=== PATIENT | male | born 1945 | race Two or more races ===

== ENCOUNTER 2016-11-10 13:38 | Inpatient (IN) | payer MEDICARE, MEDICAID ==
[~2016-11-10 13:38] MED LIST: ARTIFICIAL TEAR15 M6 BOTH EYES; FLOXIN OTIC5 M1 OT; GLUCOPHAGE850 M1 PO; LINZESS290 MC1 PO; MULTI VITAMIN1 EACH PO; MYRBETRIQ25 MG PO; NEURONTIN300 M1 PO; POLYETHYLENE GL14 EA PO; PRILOSEC OTC20 M1 PO; PRINIVIL20 M1 PO; ZOCOR20 M1 PO; [UNRECOGNIZED DRUG - OTHER]
[2016-11-11 05:58] LABS: BASO % 0.1 % (0-2); EOS % 0.1 % (0-7); HCT-HEMATOCRIT 31.7 % (36.0-53.5); HGB-HEMOGLOBIN 10.1 gm/dl (13.5-17.0); IMMATURE GRANULOCYTES ABSOLUTE 0.03 tho/cmm (0-0.03); IMMATURE GRANULOCYTES PERCENT 0.2 % (0-0.3); LYMPH % 8.4 % (20-45); LYMPH ABSOLUTE COUNT 1.3 tho/cmm (0.8-4.5); MCH (MEAN CORPUSCULAR HGB) 30.1 pg (28.0-32.0); MCHC MEAN CORPUSCULAR HGB CONC 31.9 % (32.0-36.0); MCV (MEAN CELL VOLUME) 94.6 fl (82.0-96.0); MONO % 6.8 % (0-12); MONOCYTE ABSOLUTE COUNT 1.1 tho/cmm (0.0-1.2); NEUTROPHIL ABSOLUTE COUNT 13.3 tho/cmm (1.6-8.0); NEUTROPHIL-AUTOMATED 13.3 tho/cmm (1.6-8.0); NEUTROPHILS % 84.4 % (40-80); PLATELET COUNT 367 tho/cmm (150-450); RED BLOOD COUNT 3.35 mil/cmm (4.40-5.70); RED CELL DISTRIBUTION WIDTH 14.4 % (12.4-16.4); WHITE BLOOD COUNT 15.7 tho/cmm (4.0-10.0)
[2016-11-11] MEDS ORDERED: ASPIRIN325 M3 PO (14:57)
[2016-11-11] MEDS ORDERED: MOBIC7.5 M2 PO (14:58)
[2016-11-11] MEDS ORDERED: ROXICODONE5 M2 PO (14:59)
[2016-11-11] MEDS ORDERED: ULTRAM50 M1 PO (15:02)
[2016-11-11] MEDS ORDERED: TYLENOL325 M2 PO (15:03)
[2017-05-30] MEDS ORDERED: VITAMIN D31000 UNI3 PO (15:25)
[2017-05-30] MEDS ORDERED: ULTRAM50 M1 PO (19:02)
[2017-05-30] MEDS ORDERED: PEPCID20 M1 PO (19:02)
== END 2016-11-11 16:18 | disposition home health service (06) | DRG 470 ==
LOC: SHSB 13:38 → ORE 16:33 → 5EA 21:46
PROVIDERS: Physician Assistant; ADMIT Orthopaedic Surgery
PROC: 0SRC0J9 Replacement of Right Knee Joint with Synthetic Substitute, Cemented, Open Approach (ICD-10-PCS; principal; 2016-11-10)
DX: M17.11 Unilateral primary osteoarthritis, right knee (principal); I10 Essential (primary) hypertension; F17.200 Nicotine dependence, unspecified, uncomplicated; I25.10 Atherosclerotic heart disease of native coronary artery without angina pectoris; K21.9 Gastro-esophageal reflux disease without esophagitis
CPT/HCPCS: C1713; C1776; G8979-GP-CJ; G8980-GP-CJ; G8987-GO-CJ; G8988-GO-CI; G8989-GO-CJ; J0171; J0690; J1170; J1885; J2270; J2795; J3010

== ENCOUNTER 2016-12-19 18:15 | Emergency (ER) | payer MEDICARE, MEDICAID ==
[~2016-12-19 18:15] MED LIST changes: +ASPIRIN325 M3 PO; +MOBIC7.5 M2 PO; +ROXICODONE5 M2 PO; +TYLENOL325 M2 PO; +ULTRAM50 M1 PO
[2017-05-30] MEDS ORDERED: VITAMIN D31000 UNI3 PO (15:25)
[2017-05-30] MEDS ORDERED: PEPCID20 M1 PO (19:02)
[2017-05-30] MEDS ORDERED: ULTRAM50 M1 PO (19:02)
== END 2016-12-19 19:49 ==
LOC: EDMED 18:15
DX: M25.561 Pain in right knee (principal); G89.29 Other chronic pain; G47.00 Insomnia, unspecified; I25.10 Atherosclerotic heart disease of native coronary artery without angina pectoris; E11.9 Type 2 diabetes mellitus without complications; E78.5 Hyperlipidemia, unspecified; L40.9 Psoriasis, unspecified; K21.9 Gastro-esophageal reflux disease without esophagitis; Z79.82 Long term (current) use of aspirin; Z79.899 Other long term (current) drug therapy; F17.200 Nicotine dependence, unspecified, uncomplicated